=== PATIENT | male | born 1985 | race Caucasian/White ===

== ENCOUNTER 2017-06-15 19:04 | Emergency (ER) | payer OTHER ==
[~2017-06-15] VITALS: Ht 172.7 cm; Wt 70.8 kg
[2017-06-15 19:12] VITALS: BP_SYST 147
[2017-06-15 22:49] VITALS: BP_SYST 142
== END 2017-06-15 22:49 | disposition home or self-care (01) ==
LOC: SED 19:04
DX: S00.03XA Contusion of scalp, initial encounter (principal); V89.2XXA Person injured in unspecified motor-vehicle accident, traffic, initial encounter; Y93.89 Activity, other specified; Y92.488 Other paved roadways as the place of occurrence of the external cause; Y99.8 Other external cause status
CPT/HCPCS: 70450-TC; 99284